=== PATIENT | female | born 1980 | race African-American/Black ===

== ENCOUNTER 2020-06-30 14:11 | Emergency (ER) | payer OTHER, SELFPAY ==
--- NOTE | ~2020-06-30 | XR_ITS ---
EXAMINATION: XR ankle LT min 3V DATE: 06/30/2020 14:48 INDICATION: Medial and lateral malleolar pain at the left ankle post fall TECHNIQUE: Anteroposterior, oblique, mortise, and lateral views of the left ankle were obtained. COMPARISON: None. FINDINGS: Alignment is normal. No fracture. Joint spaces are well maintained. Moderate-sized Achilles calcanea l spur. No ankle joint effusion. The soft tissues are unremarkable. IMPRESSION: 1. No acute osseous abnormality. Reviewed, dictated and finalized at location [facility]. [facility]
[2020-06-30 14:22] VITALS: BP 137/95; PULSE 84; RESP 16; TEMP 36.2; O2SAT 100
--- NOTE | 2020-06-30 14:28 | ED.LOWEXIN ---
HPI - Extremity Injury (Lower) General Chief Complaint: Extremity Injury, Lower Stated Complaint: Left Ankle Pain Time Seen by Provider: 06/30/20 14:28 Source: patient and RN notes reviewed Mode of arrival: ambulatory Limitations: no limitations History of Present Illness HPI Narrative: 39-year-old female presents with concern for left ankle injury. Reports today she slipped on the ice causing ankle pain. Reports lateral medial ankle pain with weightbearing and at rest. Reports mild swelling. Denies decreased sensation, strength. MD complaint: ankle injury Related Data Home Medications Medication Instructions Recorded Confirmed norethindrone (contraceptive) mg 06/30/20 Allergies Allergy/AdvReac Type Severity Reaction Status Date / Time No Known Allergies Allergy Unknown Unverified 09/12/16 17:54 Review of Systems Review of Systems: Narrative: CONSTITUTIONAL: Denies malaise, chills, sweats, or fever. CARDIOVASCULAR: Denies chest pain, palpitations, or edema. RESPIRATORY: Denies cough or dyspnea. SKIN: Denies abrasions, lacerations MUSCULOSKELETAL: Reports left ankle pain and swelling NEUROLOGIC: Denies numbness, weakness All systems reviewed & are unremarkable except as noted in HPI and below PMFSH Comments At time of signature, agree with nursing past medical, surgical, social and family history. There is no relevant family history pertinent to the presenting complaint Exam Narrative: Exam Narrative: GENERAL: Well-appearing, well-nourished, and in no acute distress. HEAD: Normocephalic, atraumatic. EYES: PERRLA, conjunctivae clear NECK: Supple. CHEST: Speaks in full sentences. No respiratory distress. HEART: Regular rate and rhythm. Normal and equal peripheral pulses. EXTREMITIES: [Xxx] has normal strength and sensation, normal range of motion. No edema or ecchymosis. 5/5 strength with [xxx] flexion and extension. Normal sensation with sensitivity to light touch and pain. No point tenderness. No open wounds, no skin tenting, no devitalized tissue or atrophy, no trophic changes, no obvious deformity, alignment normal, nearby joints and structures intact. Distal pulses palpable and equal bilaterally, skin warm, dry, pink. Capillary refill less than 3 seconds. SKIN: Warm, dry, no rash. NEURO: Alert and oriented x3. PSYCH: Normal mood and affect Course Course Emergency Course: Patient is aware of diagnosis, understands and agrees to treatment plan. Anticipatory guidance given. Patient agrees to follow-up as directed and is aware of reasons to seek care at the emergency department. Portions of this record may have been created with voice recognition software Vital Signs Vital signs: Vital Signs Temperature 97.2 F L 06/30/20 14:22 Pulse Rate 84 06/30/20 14:22 Respiratory Rate 16 06/30/20 14:22 Blood Pressure 137/95 H 06/30/20 14:22 Pulse Oximetry 100 06/30/20 14:22 Temperature 97.2 F L 06/30/20 14:22 Pulse Rate 84 06/30/20 14:22 Respiratory Rate 16 06/30/20 14:22 Blood Pressure 137/95 H 06/30/20 14:22 Pulse Oximetry 100 06/30/20 14:22 Reviewed. Patient has been instructed to follow up with her primary care provider within the next week regarding her elevated blood pressure today. MDM - Extremity Injury (Lower) MDM Narrative Medical decision making narrative: Patients injury and pain is consistent with musculoskeletal etiology. No signs of neurological or vascular compromise on exam. Compartments and tissues are soft without signs of compartment syndrome. Pain is felt appropriate for further evaluation on an outpatient basis. Imaging Data My impression: Images reviewed, interpreted by radiologist, agree, see report. Radiologist's impression: EXAMINATION: XR ankle LT min 3V DATE: 06/30/2020 14:48 INDICATION: Medial and lateral malleolar pain at the left ankle post fall TECHNIQUE: Anteroposterior, oblique, mortise, and lateral views of the left ankle were obtained. COMPARIS
== END 2020-06-30 15:13 | disposition home or self-care (01) ==
PROVIDERS: Emergency Provider Nurse Practitioner; PCP Internal Medicine Infectious Disease
DX: S93.402A Sprain of unspecified ligament of left ankle, initial encounter (principal); S96.912A Strain of unspecified muscle and tendon at ankle and foot level, left foot, initial encounter; W00.0XXA Fall on same level due to ice and snow, initial encounter
CPT/HCPCS: 73610; 99213; G0463

== ENCOUNTER 2021-09-06 00:41 | Day surgery (SDC) | payer OTHER, SELFPAY ==
[2021-08-28 10:46] VITALS: BMI 43.5
--- NOTE | 2021-08-28 11:00 | PC.NURSE ---
Report to the Outpatient Waiting Room, entrance under the green pavilion located off [facility], at time 0600 on date 09/06/21. OR Time: 0730. - You and your visitor will be asked a series of questions to screen for COVID 19 for your protection. - A mask is required within the hospital. One visitor will be allowed to accompany the patient into the hospital. Patients visitor will be instructed to remain with patient at all times or leave the building. We will allow the visitor to come back to the postoperative area when patient is ready. Preoperative COVID Testing Requirements: No COVID Test needed if: (proof is required; if not received patient will have Rapid Test prior to entry) - Patient has received COVID Vaccine at least 14 days prior to procedure date or - Patient has positive COVID test result within last 90 days of surgery date. COVID Test needed if above criteria is not met Patients may have clear liquids (water, carbonated beverages, clear teas, apple juice) until 3 hours prior to surgery with a maximum of 20 ounces. - No food from midnight until time of surgery Take the following medications with a SIP of water the morning of surgery: NONE Medications to discontinue per physician: VITAMINS/SUPPLEMENTS Date to take last dose: 09/02/21 Please no make-up, nail yoruba, hairspray, perfume, deodorant, or body powder the day of surgery. No jewelry (including any body piercings) or valuables the day of surgery, leave them at home. Please take a shower or bath the night before, or the morning of, surgery with an antibacterial soap. Wear comfortable, loose fitting clothing. - Jewelry must be removed prior to entering the operating room. Rings and piercings that are not removed may be cut off. - The hospital will not accept responsibility for valuables. - Please leave all valuables, including medications, at home the day of surgery. If you are going home after surgery, a licensed mail truck driver must drive you home. - NO public transportation without another adult. - We recommend that an adult stay with you for 24 hours following discharge. - We also recommend that you do not drive, make important decision, drink alcoholic beverages, or take any drugs that were not prescribed by your health care provider for at least 24 hours after your discharge time. Follow any additional instructions given to you from your surgeon. Telephone instructions given to ORESTES CHANDLER and asked if any additional questions and then verbalized understanding. Patient advised to call surgeon office or pre surgery nurse liaison [phone] if any additional questions.
[2021-09-06] VITALS (9 sets, daily range): BP systolic 106–160; BP diastolic 60–92; PULSE 52–65; RESP 12–20; TEMP 36.1–37.2; O2SAT 98–100; BMI 47.1
[2021-09-06] MEDS: KETOROLAC 15 MG/ML VIAL (*BKC) IV PUSH (06:48)
[2021-09-06] MEDS: LACTATED RINGERS 1,000 ML 30 ML IV CONT ×2 (06:48→10:15)
[2021-09-06] MEDS: ACETAMINOPHEN 500 MG TABLET 1000 MG PO (06:48)
--- NOTE | 2021-09-06 06:55 | WPDANESEPPF ---
Anes - Initial Pre Proc Eval Procedure: Operation Date: 09/06/21 07:30 Proposed Procedures p Total Laparoscopic Hysterectomy with Bilateral Salpingectomy - Sd Bledsoe MD Date/Time: 09/06/21 06:55 Surgeon: Sd Bledsoe MD Pre Op Diagnosis: leiomyoma of uterus Patient Data Age: 41 Gender: F Height: 1.68 m Weight: 132.5 kg Allergies Allergy/AdvReac Type Severity Reaction Status Date / Time No Known Allergies Allergy Unknown Verified 09/06/21 06:32 Home Medications Medication Instructions Recorded Confirmed Type multivitamin 1 tablet PO DAILY 08/28/21 09/06/21 History Patient hx anesthesia problems: other (At [place], [place], attempted BTL, heart stopped per patient- not explained well post-op. Cardiac work-up incl. Holter, Stress, Echo all neg) Family hx anesthesia problems: none Results Review: All pre-operative results and documents have been reviewed as part of the pre-operative evaluation. [facility] Past Medical History Medical History (Updated 09/06/21 @ 06:55 by Waldemar Cornejo MD) Morbid obesity Surgical History Surgical History (Updated 09/06/21 @ 06:56 by Waldemar Cornejo MD) History of tubal ligation procedure discontinued intra-op due to unknown event in OR. Not explained well to patient. post-op cardiac workup negative Social History Social History Smoking status: Never smoker Alcohol intake: current Alcohol use details: 2/MONTH Substance use: never Substance use type: does not use Living arrangements: with family Additional living arrangements comments: CHILDREN Spiritual care concerns: No Anes - Eval Final PreProcedure Day of Procedure 09/06/21 06:55 Patient weight: morbidly obese Heart: regular rate and rhythm Lungs: clear to auscultation Airway: Mallampati scale class II Neurological: alert and oriented Last oral intake: >/= 8 hours ASA classification: III Emergent: no Anesthetic plan: proceed Anesthesia type and monitoring: general ETT and standard monitoring Results Review: All pre-operative results and documents have been reviewed as part of the pre-operative evaluation. Informed Consent: The patient's anesthetic plan of GA with ETT and its attendant risks including cardiac events and benefits were discussed at length with the patient/family/POA. Questions were solicited and answers provided to the satisfaction of the patient/family/POA.
--- NOTE | 2021-09-06 07:23 | WPDHPUPDATE1 ---
History and Physical Update Update Date/Time: 09/06/21 07:23 History and Physical has been reviewed, including an updated exam of the patient. There are NO changes in the patient's condition. Risks, benefits, and alternatives have been discussed and questions answered. Patient agrees to proceed with procedure.
[2021-09-06] MEDS: ceFAZolin 3 GM/D5W 100 ML 100 ML IVPB (07:34)
[2021-09-06] MEDS: ceFAZolin SODIUM 1 GM VIAL IRRIGATION (08:28)
--- NOTE | 2021-09-06 10:25 | W.PM.PROC2 ---
Procedure Note - Detailed Date of Procedure 09/06/21 Pre-op Diagnosis leiomyoma of uterus, menorrhagia Post-op Diagnosis Same Procedure Performed Total laparoscopic hysterectomy and bilateral salpingo injected me Surgeon Sd Bledsoe MD Anesthesia General Indications Menorrhagia, pain Findings Enlarged fibroid uterus, normal vulva vagina and cervix. Normal tubes and ovaries. Description of Procedure This patient was taken to the operating room. She was prepped and draped in the dorsal lithotomy position after induction of general anesthesia. The uterine manipulator and Isabella cup were placed. This was done with a speculum and tenaculum. The speculum was placed. The cervix was grasped with a tenaculum. The stay sutures were placed at 3 and 9:00 a.m.. The stay sutures of 0 Vicryl were brought through the appropriately sized Isabella cup. The tip of the MU manipulator was placed in the intrauterine cavity. The cup was slid into place around the cervix and into the fornices. It was locked into place. The sutures were then wrapped around the handle and tied under tension. A 5 mm skin incision was made in the left upper quadrant the abdomen. A 5 mm trocar was inserted into the intrauterine cavity under direct visualization of the scope. Pneumoperitoneum was achieved. A left lower quadrant 11 mm incision was made with scalpel. An 11 mm trocar was inserted into the anterior abdominal cavity under direct visualization the scope. A 5 mm infraumbilical incision was made with a scalpel and a 5 mm trocar was inserted the intra-abdominal cavity under direct visualization of the scope. Bilateral ureteral lysis was performed. This was done from the pelvic brim down to the uterine artery. This was done with careful dissection using sharp and blunt dissection. The fallopian tubes were removed bilaterally. The mesosalpinx around the fallopian tubes were cauterized transected with LigaSure cautery. This was done in a bilateral fashion from the ovary to the uterine cornua. The fallopian tube was transected at the uterine cornu and amputated. The tube was taken out the left lower quadrant trocar site. In a stepwise fashion along the lateral aspects of the uterus the round ligament and broad ligaments were cauterized transected down to the level of the uterine arteries. A bladder flap was created in the bladder was moved distally to the end of the cervix and over the Isabella cup. The bilateral uterine arteries were cauterized and transected. Colpotomy was then performed. In a circumferential fashion the vagina was transected using unipolar cautery. The incision was made down on the Isabella cup. The uterus and cervix were taken out through the vagina. A pneumo occluder was placed in the vagina. The vaginal cuff was closed with a 0 V lock suture in a running fashion. The pelvis was irrigated with copious amounts antibiotic irrigation. The ureters were again examined and found to be intact and flowing freely under the uterine arteries into the bladder. The bladder was intact. It was examined directly. The vagina was irrigated with Betadine solution after removal of the Pneumo occluder. The patient was taken to recovery room. She was stable condition. Sponge lap and needle counts were correct x2. Estimated Blood Loss 50 Drains Yes Packing No Pathology Yes Complications No immediate complications Condition Stable Disposition Floor
--- NOTE | 2021-09-06 10:54 | SUR.PHASEI ---
Simple mask removed at 1053.
--- NOTE | 2021-09-06 11:38 | PC.NURSE ---
Patient admitted to OB floor per bed. Oriented to room, call light within reach.
[2021-09-06] MEDS: DEXTROSE 5%/0.45% SOD CHL 1,000 ML 125 ML IV CONT (11:52)
[2021-09-06] MEDS: KETOROLAC 30 MG/ML VIAL (*BKC) IV PUSH ×2 (13:21→19:08)
[2021-09-06] MEDS: ONDANSETRON INJ 4 MG/2 ML VIAL IV PUSH (14:48)
[2021-09-06] MEDS: HYDROcodone/acetaminophen (*CRX) 5-325 MG TABLET 1 TAB PO (19:07)
[2021-09-06] MEDS: HYDROcodone/acetaminophen (*CRX) 10-325 MG TABLET 1 TAB PO (23:53)
[2021-09-07 05:15] VITALS: BP 125/59; PULSE 75; RESP 20; TEMP 36.7
[2021-09-07] MEDS: HYDROcodone/acetaminophen (*CRX) 10-325 MG TABLET 1 TAB PO (05:28)
[2021-09-07] MEDS: IBUPROFEN 600 MG TABLET PO (05:29)
--- NOTE | 2021-09-07 07:47 | PM.GYNPNOP ---
MOWING MACHINE OPERATOR - A/P Postoperative Procedures: Procedures Operation Date: 09/06/21 07:30 Actual Procedure Side Surgeon p Total Laparoscopic Hysterectomy with Bilateral Salpingectomy, IUD Removal Sd Bledsoe MD Postoperative day: 1 Postoperative status: doing well Postoperative plan: see orders Time Spent With Patient Time: Total time spent is greater than 50% in coordination of care (as documented) at patient's floor/unit and/or counseling patient: Time with patient: less than 15 minutes MOWING MACHINE OPERATOR- PN:Subj Post-Op Subjective Date/time seen: 09/07/21 07:47 Subjective: patient reports feeling better, patient has no complaints and pain is well controlled Exam Const: General: healthy appearing, comfortable and no acute distress Resp: Auscultation: clear to auscultation bilaterally, no rales, no rhonchi and no wheezes Cardio: Rate: regular rate Heart sounds: no click, no murmurs and no rubs GI: Inspection: non-distended Auscultation: normal bowel sounds Extrem: General: normal to inspection, no pedal edema and no calf tenderness MOWING MACHINE OPERATOR - PN: Obj Data Vital Signs Vital Signs: Vital Signs - 24 hr 09/06/21 10:15 09/06/21 10:30 09/06/21 10:45 Temperature 97.0 F L Pulse Rate 64 64 60 Respiratory Rate 12 14 15 Blood Pressure 106/60 148/88 H 140/77 Pulse Oximetry 100 100 100 09/06/21 11:00 09/06/21 11:15 09/06/21 11:45 Temperature 97.4 F L Pulse Rate 52 L 56 L 54 L Respiratory Rate 12 14 14 Blood Pressure 137/75 143/79 H 139/76 Pulse Oximetry 99 98 99 09/06/21 17:45 09/06/21 18:30 09/07/21 05:15 Temperature 98.6 F 98.3 F 98.0 F Pulse Rate 60 65 75 Respiratory Rate 20 20 20 Blood Pressure 160/92 H 151/81 H 125/59 L Pulse Oximetry 100 Intake/Output Intake/Output: Intake & Output 09/04/21 09/05/21 09/06/21 09/07/21 23:59 23:59 23:59 23:59 Intake Total 1250 Output Total 1495 Balance -245 Meds/Results Medications: Active Medications Generic Name Dose Route Start Last Admin Trade Name Freq PRN Reason Stop Dose Admin Hydrocodone Bitart/Acetaminophen 1 tab 09/06/21 11:35 09/06/21 19:07 Hydrocodone/Acetaminophen (*Crx) 5-325 Mg Tablet PO 1 tab Q3H PRN Administration Pain Rated 5 or Less Hydrocodone Bitart/Acetaminophen 1 tab 09/06/21 11:35 09/07/21 05:28 Hydrocodone/Acetaminophen (*Crx) 10-325 Mg Tablet PO 1 tab Q3H PRN Administration Pain Rated 6 or Greater Ibuprofen 600 mg 09/06/21 11:35 09/07/21 05:29 Ibuprofen 600 Mg Tablet PO 600 mg Q6H PRN Administration Cramping Ketorolac Tromethamine 30 mg 09/06/21 11:35 09/06/21 19:08 Ketorolac 30 Mg/Ml Vial (*Bkc) IV PUSH 09/11/21 11:34 30 mg Q6H PRN Administration Pain Rated 4-6 Naloxone HCl 0.1 mg 09/06/21 11:35 Naloxone Hcl 0.4 Mg/Ml Vial IV PUSH Q2M PRN Respiratory rate less than 10 Ondansetron HCl 4 mg 09/06/21 11:35 09/06/21 14:48 Ondansetron Inj 4 Mg/2 Ml Vial IV PUSH 4 mg Q6H PRN Administration Nausea And Vomiting Labs Labs: Laboratory Results - last 24 hr 09/06/21 06:51 Blood Type A Positive Antibody Screen Negative
--- NOTE | 2021-09-07 07:51 | WPDANESPN ---
Anes - Prog Note Post-Op Date/Time: 09/07/21 07:51 Cardiovascular status: normal Respiratory status: normal Airway patency: baseline Mental status: baseline Post-Op hydration status: normal Vital Signs: Last Vital Signs Temp 36.7 C 09/07/21 05:15 Pulse 75 09/07/21 05:15 Resp 20 09/07/21 05:15 BP 125/59 L 09/07/21 05:15 Pulse Ox 100 09/06/21 17:45 Pain Score (VAS): 3/10 I/O: Intake & Output 09/06/21 09/06/21 09/07/21 15:59 23:59 07:59 Intake Total 670 580 Output Total 270 1225 Balance 400 -645 09/06/21 06:51 Blood Type A Positive Antibody Screen Negative Post-procedural complaints: none Patient Feedback: Patient satisfied with anesthetic care.
[2021-09-07 08:35] VITALS: BP 131/73; PULSE 64; RESP 16; TEMP 36.8; O2SAT 100
[2021-09-07] MEDS: HYDROcodone/acetaminophen (*CRX) 5-325 MG TABLET 1 TAB PO (09:47)
== END 2021-09-07 10:48 | disposition home or self-care (01) ==
LOC: ANHSURGERY 06:05 → ANHOB2 11:37
PROVIDERS: PCP Internal Medicine Infectious Disease; Visit Provider Obstetrics & Gynecology
PROC: 0UT9FZZ Resection of Uterus, Via Natural or Artificial Opening With Percutaneous Endoscopic Assistance (ICD-10-PCS; CPT 58573; principal; 2021-09-06 07:30)
DX: N92.0 Excessive and frequent menstruation with regular cycle (principal); N80.0 Endometriosis of uterus; D25.2 Subserosal leiomyoma of uterus; E66.01 Morbid (severe) obesity due to excess calories; Z68.42 Body mass index [BMI] 45.0-49.9, adult
CPT/HCPCS: 58573; 36415; 86850; 86900; 86901; 88307; 99199; A9270; J0690; J1100; J1170; J1885; J2250; J2405; J2704; J2710; J3010; J7030; J7120

== ENCOUNTER 2021-10-02 10:00 | Outpatient (CLI) | payer OTHER, SELFPAY ==
--- NOTE | ~2021-10-02 | MM_ITS ---
EXAMINATION: MM screening demi BI w michi HISTORY: Screening mammogram TECHNIQUE: Craniocaudal and mediolateral oblique 3-D tomosynthesis images were obtained and synthetic 2-D images were generated. CAD analysis was submitted and interpreted. COMPARISON: 04/12/2016 bilateral diagnostic mammogram and right complete breast ultrasound BREAST PARENCHYMAL COMPOSITION: There are scattered areas of fibroglandular density. FINDINGS: There is no evidence of suspicious mass, calcification, or architectural distortion to sugg est malignancy in either breast. There has been no suspicious interval change. IMPRESSION: 1. No mammographic evidence of malignancy. 2. Recommend routine screening mammography in one year. BI-RADS Category 1: Negative Reviewed, dictated and finalized at location A.
== END 2021-10-02 10:01 | disposition home or self-care (01) ==
LOC: ANHIMG 10:02
PROVIDERS: PCP Internal Medicine Infectious Disease; Visit Provider Obstetrics & Gynecology
DX: Z12.31 Encounter for screening mammogram for malignant neoplasm of breast (principal)
CPT/HCPCS: 77063; 77067

== ENCOUNTER 2021-12-05 13:29 | Emergency (ER) | payer OTHER, SELFPAY ==
--- NOTE | ~2021-12-05 | CT_ITS ---
EXAMINATION: CT abdomen pelvis wo con DATE: 12/05/2021 14:23 INDICATION: Right upper quadrant abdominal pain since hysterectomy 3 months ago TECHNIQUE: Computed tomography (CT) of the abdomen and pelvis was performed without intravenous contr ast. Automated exposure control and iterative reconstruction technique were employed. Exam dose: 131 0.48 mGy-cm total exam DLP. COMPARISON: None. FINDINGS: The lung bases are clear. Normal heart size. No pericardial or pleural effusion. The gallbladder is contracted. No apparent gallbladder wall thickening or pericholecystic fluid or fa t stranding is noted. Gallbladder ultrasound would be more accurate for diagnosis of cholelithiasis. The liver, bile ducts, spleen, pancreas, pancreatic duct, and adrenal glands and kidneys appear papi l on this noncontrast examination. No urinary tract calculus or hydroureteronephrosis. The urinary bl adder is unremarkable. Status post hysterectomy. Normal appendix. Diverticulosis of the colon; no CT evidence of diverticulitis. No bowel obstruction or intraperitoneal free air. Normal caliber of the abdominal aorta. No intraperitoneal or retroperitoneal or pelvic mass lesion or adenopathy or ascites. Small fat-containing umbilical hernia. Included skeletal structures are unremarkable other than some degenerative changes of the thoracic an d lumbar spine; no suspicious osteolytic or osteoblastic lesions. IMPRESSION: Diverticulosis of the colon; no CT evidence of diverticulitis Normal appendix Status post hysterectomy Reviewed, dictated and finalized at Location [facility]. Reviewed, dictated and finalized at location A.
[2021-12-05 13:42] VITALS: BP 134/95; PULSE 70; RESP 18; TEMP 36.7; O2SAT 100
[2021-12-05 13:59] LABS: Basophils Absolute Auto 0.1 K/mm3 (0.0-0.1); Basophils Percent Auto 0.7 % (0.2-1.2); Eosinophils Absolute Auto 0.2 K/mm3 (0-0.3); Eosinophils Percent Auto 2.5 % (0-4.4); Hematocrit 34.6 % (37.0-47.0); Hemoglobin 10.5 g/dL (12.0-15.0); Immature Granulocyte Absolute 0.03 K/mm3 (0.00-0.031); Immature Granulocyte Percent A 0.4 % (0-0.5); Lymphocytes Absolute Auto 1.85 K/mm3 (0.9-3.2); Lymphocytes Percent Auto 26.9 % (18.3-44.2); Mean Corpuscular HGB Conc 30.3 g/dl (32-36); Mean Corpuscular Volume 75.7 fl (80-100); Mean Platelet Volume 11.2 fl (7.4-10.4); Monocytes Absolute Auto 0.5 K/mm3 (0.1-0.6); Monocytes Percent Auto 6.7 % (2.6-8.5); Neutrophils Absolute Auto 4.3 K/mm3 (1.3-6.7); Neutrophils Percent Auto 62.8 % (45.5-73.1); Platelet Count Result 284 k/mm3 (150-375); Red Blood Count 4.57 M/mm3 (4.2-5.4); Red Cell Distribution Width 16.8 % (11.5-14.5); White Blood Count 6.9 K/mm3 (4.5-10.0)
[2021-12-05 14:07] VITALS: O2SAT 100
[2021-12-05 14:07] LABS: Appearance Urine Cloudy (Clear); Bilirubin Urine Negative (Negative); Blood Urine Negative (Negative); Color Urine Yellow (Yellow); Glucose Urine UA Negative (Negative); Ketones Urine Negative (Negative); Leukocyte Esterase Ur 1+ LEU/UL (Negative); Nitrate Urine Negative (Negative); Protein Urine Negative (Negative); Specific Grav Ur 1.015 (1.001-1.035); Urobilinogen Urine 0.2 mg/dL (<2.0); pH Urine 7.5 (5.0-9.0)
[2021-12-05 14:08] VITALS: BP 143/82; PULSE 78; RESP 22; O2SAT 100
[2021-12-05 14:09] LABS: Alanine Aminotransferase 12 U/L (6-35); Albumin Level 4.3 g/dL (3.5-5.1); Alkaline Phosphatase 67 U/L (38-126); Anion Gap 4 mmol/L (8-16); Aspartate Amino Transferase 18 U/L (14-36); Bilirubin,Total 0.2 mg/dL (0.2-1.3); Blood Urea Nitrogen 11 mg/dL (7-17); Calcium 9.2 mg/dL (8.4-10.2); Carbon Dioxide 25 mmol/L (22-30); Chloride 105 mmol/L (98-107); Estimated CRCL calculation 96 ml/min; Estimated Glomerular Filt Rate > 60; Glucose 93 mg/dL (65-110); Lipase 227 U/L (23-300); Sodium 134 mmol/L (137-145)
[2021-12-05 14:13] LABS: Bacteria Urine Trace /hpf; Mucus Urine Rare /lpf; RBC Urine 0-2 /hpf (0-2); Squamous Epithelial Cell Urine Many /hpf (Few)
[2021-12-05 14:14] LABS: Add Urine Microscopic? YES
--- NOTE | 2021-12-05 15:02 | ED.ABDPAIN ---
HPI - Abdominal Pain General Chief Complaint: Abdominal Pain Stated Complaint: abdominal pain post hysterectomy in September Time Seen by Provider: 12/05/21 14:07 History of Present Illness HPI narrative: 41-year-old female presenting with right upper quadrant pain for the last few months since she had her hysterectomy, states that it is constant and has been worsening, no fevers or chills, nausea or vomiting, chest pain or shortness of breath, vaginal discharge or bleeding. Pain is nonradiating. Related Data Home Medications Medication Instructions Recorded Confirmed multivitamin 1 tablet PO DAILY 08/28/21 12/05/21 Allergies Allergy/AdvReac Type Severity Reaction Status Date / Time No Known Allergies Allergy Unknown Verified 09/06/21 06:32 Review of Systems Review of Systems: CONST: No fever. HEENT: No sore throat C/V: No chest pain RESP: No cough GI: Reports abdominal pain : No dysuria, or vaginal bleeding or discharge M/S: No joint pain. SKIN: No rash. NEURO: [No headache or focal numbness or weakness] PSYCH: [No depression] [facility] Past Medical History Medical History Morbid obesity Surgical History Surgical History History of tubal ligation procedure discontinued intra-op due to unknown event in OR. Not explained well to patient. post-op cardiac workup negative Social History Social History Smoking status: Never smoker Alcohol intake: current Alcohol use details: 2/MONTH Substance use: never Substance use type: does not use Additional living arrangements comments: CHILDREN Spiritual care concerns: No Exam Narrative: EXAMINATION OF ORGAN SYSTEMS/BODY AREAS: Constitutional: Vital signs per nursing GENERAL:[No acute distress, non-toxic appearing.] HEAD: Normal with no signs of head trauma. EYES: EOMI, conjunctiva normal ENT: Hearing grossly intact LUNGS: Nonlabored breathing. HEART: [Regular rate and rhythm] ABD: [Soft], [nontender to palpation] EXT: Normal range of motion SKIN: [No rashes or lesions.] NEURO: [Alert and oriented x 3. No gross focal sensory or strength deficits.] PSYCH: Normal affect Course Vital Signs Vital signs: Vital Signs Temperature 98.0 F 12/05/21 13:42 Pulse Rate 70 12/05/21 13:42 Respiratory Rate 18 12/05/21 13:42 Blood Pressure 134/95 H 12/05/21 13:42 Pulse Oximetry 100 12/05/21 13:42 Oxygen Delivery Room Air 12/05/21 13:42 Temperature 98.0 F 12/05/21 13:42 Pulse Rate 78 12/05/21 14:08 Respiratory Rate 22 H 12/05/21 14:08 Blood Pressure 143/82 H 12/05/21 14:08 Pulse Oximetry 100 12/05/21 14:08 Oxygen Delivery Room Air 12/05/21 13:42 MDM - Abdominal Pain MDM Narrative Medical decision making narrative: 41-year-old male presenting with months of right sided abdominal pain after hysterectomy, signs normal here, exam shows well-appearing patient with soft, nontender abdomen, differential includes biliary etiology, less likely postop pain given the location of her symptoms, unlikely STD without vaginal discharge or UTI without dysuria. Doubt appendicitis given chronicity of symptoms. CT does not show any acute abnormality, on reevaluation patient is not endorsing any worsening abdominal pain, abdomen remains soft and nontender, UA does show some WBCs so we will start her on antibiotics, I have urged patient to follow-up with her doctor and she says that she will make an appointment for next week, findings discussed with the patient, and she is asked to return for any further issues. Lab Data Result diagrams: 12/05/21 13:51 12/05/21 13:50 Labs: Lab Results 12/05/21 12/05/21 12/05/21 Range/Units 13:50 13:51 13:57 WBC 6.9 (4.5-10.0) K/mm3 RBC 4.57 (4.2-5.4) M/mm3 Hgb 10.5 L (12.0-15.0) g/dL Hct 34.6 L (
--- NOTE | 2021-12-06 09:54 | PC.NURSE ---
pt called 12/06/21 - states her antibiotic for her diagnosed UTI was not at the pharmacy. Dr Gibbs not here to ask. Asked Dr Mao to look at her chart and prescribe her antibiotic. Dr Mao agreed to send antibiotic in on the patient. Called pt back to inform her
== END 2021-12-05 16:16 | disposition home or self-care (01) ==
PROVIDERS: Emergency Medicine; Emergency Provider Emergency Medicine; PCP Internal Medicine Infectious Disease
DX: N39.0 Urinary tract infection, site not specified (principal); R10.11 Right upper quadrant pain; K57.30 Diverticulosis of large intestine without perforation or abscess without bleeding
CPT/HCPCS: 36415; 74176; 80053; 81001; 83690; 85025; 99284; A9270